=== PATIENT | male | born 1985 | race Caucasian/White ===

== ENCOUNTER → 2016-10-30 | Outpatient (CLI) | payer OTHER ==
--- NOTE | 2016-10-30 19:21 | MR ---
EXAMINATION TYPE: MR iac wo/w con DATE OF EXAM: 10/30/2016 COMPARISON: Prior performed at [facility]. No prior at this institution. HISTORY: Vertigo, tinnitis and hearing loss. Left-sided hearing loss. Prior head trauma. Right-sided numbness. TECHNIQUE: Multiplanar, multisequence images of the brain and brainstem is performed without and with IV contras t, utilizing 7.0 mL intravenous Gadavist FINDINGS: Diffusion weighted images demonstrate no evidence of a recent infarct or other diffusion ab normality. There is no extra-axial fluid collection or significant white matter signal abnormality. The ventricular system and cisternal spaces are normal in size and appearance. The brain volume is age appropriate. Midline structures demonstrate normal morphology. The craniocervical junction appears within normal limits. Post contrast images demonstrate no abnormal enhancement. The dural venous sinuses appear pa tent. Mild mucosal thickening is seen within the ethmoid sinuses. The remaining visualized sinuses ar e clear and the globes are intact. No mass is seen at the cerebellopontine angle. No abnormal enhancement is seen of the 7th or 8th cran ial nerves in the intracanalicular, genu, or labyrinth portions. No fluid is seen within the mastoid air cells. Semicircular canals appear unremarkable. IMPRESSION: 1. No evidence of enhancing mass to suggest vestibular schwannoma, mastoid fluid, middle air cavity f luid, or abnormal enhancement of the 7th or 8th cranial nerves to suggest neuritis. 2. Mild paranasal sinus disease.
== END | disposition home or self-care (01) ==
LOC: RADMRIMAIN 14:35
PROVIDERS: ATTEND Otolaryngology
DX: H91.90 Unspecified hearing loss, unspecified ear (principal)
CPT/HCPCS: 70553; A9581

== ENCOUNTER 2021-02-19 15:31 | Emergency (ER) | payer OTHER ==
[2021-02-19 16:16] VITALS: BP 136/77; PULSE 83; RESP 20; TEMP 98
[2021-02-19] MEDS ORDERED: ACETAMINOPHEN TAB 500 MG TAB PO STA (16:23)
--- NOTE | 2021-02-19 17:13 | CT ---
EXAMINATION TYPE: CT brain wo con DATE OF EXAM: 02/19/2021 COMPARISON: None HISTORY: Headache and blurred vison after head injury. CT DLP: 1099.4 mGycm Automated exposure control for dose reduction was used. Ventricles and sulci appear normal. There is no mass effect or midline shift. There is no sign of int racranial hemorrhage. Calvarium is intact. There is no evidence of cerebral edema. IMPRESSION: Negative unenhanced head CT scan.
--- NOTE | 2021-02-19 17:18 | ED ---
Head Injury HPI - General Chief complaint: Head Injury Stated complaint: Head Trauma,Blurred Vision Time Seen by Provider: 02/19/21 16:19 Source: patient, RN notes reviewed Mode of arrival: ambulatory Limitations: no limitations - History of Present Illness Initial comments: Presents to the emergency department complaining of headache. He notes that he had several logs fallen abdomen the back of her head. He denied losing consciousness or taking blood thinners. Patient did have some abrasions to the right lateral posterior aspect of his neck. Patient notes she tried walking and off but came to the emergency room to get evaluated. He notes he is a little bit dizzy and did have blurred vision shortly after the initial incident. Patient denied any other issues or complaints. He denied any chest pain shortness of breath nausea vomiting diarrhea constipation fever fatigue chills. - Related Data Home Medications Medication Instructions Recorded Confirmed Albuterol Sulfate [Proair Hfa] 1 puff INHALATION DIRECTED 04/26/15 12/24/15 Fluticasone/Salmeterol [Advair 1 puff INHALATION DAILY 04/26/15 12/24/15 100-50 Diskus] Previous Rx's Medication Instructions Recorded Ibuprofen [Motrin] 800 mg PO Q6HR PRN #20 tab 12/24/15 Tamsulosin HCl [Flomax] 0.4 mg PO DAILY #7 cap 12/24/15 Allergies/Adverse reactions: Allergies Allergy/AdvReac Type Severity Reaction Status Date / Time No Known Allergies Allergy Verified 02/19/21 16:16 Review of Systems ROS Statement: Those systems with pertinent positive or pertinent negative responses have been documented in the HPI. ROS Other: All systems not noted in ROS Statement are negative. Past Medical History Past Medical History: Asthma History of Any Multi-Drug Resistant Organisms: None Reported Past Surgical History: No Surgical Hx Reported Past Psychological History: No Psychological Hx Reported Smoking Status: Never smoker Past Alcohol Use History: Occasional Past Drug Use History: None Reported General Exam Limitations: no limitations General appearance: alert, in no apparent distress Head exam: Present: normocephalic, normal inspection. Absent: atraumatic (Several abrasions to the posterior right side of the head and neck.) Eye exam: Present: normal appearance, PERRL, EOMI. Absent: scleral icterus, conjunctival injection, periorbital swelling Pupils: Present: normal accommodation ENT exam: Present: normal exam, mucous membranes moist Neck exam: Present: normal inspection, tenderness (Right posterior lateral aspect with several abrasions), full ROM. Absent: lymphadenopathy Respiratory exam: Present: normal lung sounds bilaterally. Absent: respiratory distress, wheezes, rales, rhonchi, stridor Cardiovascular Exam: Present: regular rate, normal rhythm, normal heart sounds. Absent: systolic murmur, diastolic murmur, rubs, gallop, clicks Extremities exam: Present: normal inspection, full ROM, normal capillary refill. Absent: tenderness, pedal edema, joint swelling, calf tenderness Neurological exam: Present: alert, oriented X3 Psychiatric exam: Present: normal affect, normal mood Skin exam: Present: warm, dry, intact, normal color. Absent: rash Course Vital Signs 02/19/21 16:14 Temperature 98 F Pulse Rate 83 Respiratory 20 Rate Blood Pressure 136/77 O2 Sat by Pulse 98 Oximetry Medical Decision Making - Medical Decision Making 36-year-old male with head injury after walks fell on him. CT of the brain, 1000 mg of T[address]ol ordered. CT of the brain negative for any acute process. Patient most likely suffered a concussion. Patient informed of results in his room with discharge home with follow-up primary care. Case discussed with Dr. Perea. Disposition Clinical Impression: Concussion without loss of consciousness Disposition: HOME SELF-CARE Condition: Stable Instructions (If sedation given, give patient instructions): Concussion (ED) Additional Instructions: Please return to the Emergency Department if symptoms worsen or any other concerns. Follow-up with primary care 1-2 days. 2 Tylenol Motrin as needed for aches or pains. Avoid any strenuous activity or contact sports. Is patient prescribed a controlled substance at d/c from ED?: No Referrals: Ramin King III, MD [Primary Care Provider] - 1-2 days Time of Disposition: 17:17
== END 2021-02-19 17:33 | disposition home or self-care (01) ==
LOC: EC 15:31
DX: S06.0X0A Concussion without loss of consciousness, initial encounter (principal); R40.2412 Glasgow coma scale score 13-15, at arrival to emergency department; J45.909 Unspecified asthma, uncomplicated; Z79.51 Long term (current) use of inhaled steroids; W20.8XXA Other cause of strike by thrown, projected or falling object, initial encounter; Y92.009 Unspecified place in unspecified non-institutional (private) residence as the place of occurrence of the external cause
CPT/HCPCS: 70450; 99284

== ENCOUNTER → 2021-12-05 | Outpatient (CLI) | payer OTHER ==
--- NOTE | 2021-12-06 02:59 | MR ---
EXAMINATION TYPE: MR shoulder LT wo con DATE OF EXAM: 12/05/2021 COMPARISON: None HISTORY: Left shoulder pain x 2-3 years, no trauma. Multiplanar multi echo imaging of the left shoulder with no contrast. The subscapularis tendon is intact. There is small amount of fluid around the biceps tendon. Biceps t endon is intact. The glenoid declan appear intact. Glenohumeral joint space is fairly normal. The AC j oint is intact. No significant subacromial impingement. The supraspinatus tendon is intact. No retrac tion. Infraspinatus tendon is intact. No evidence of focal bone destruction. Scapula is intact. IMPRESSION: No evidence of rotator cuff tear. Slight increased joint fluid consistent with minimal synovitis. No fracture.
== END | disposition home or self-care (01) ==
LOC: RADMRIMAIN 16:23
PROVIDERS: ATTEND Orthopaedic Surgery
DX: M65.812 Other synovitis and tenosynovitis, left shoulder (principal); M75.42 Impingement syndrome of left shoulder; M62.81 Muscle weakness (generalized); Z68.28 Body mass index [BMI] 28.0-28.9, adult

== ENCOUNTER → 2022-06-02 | Outpatient (CLI) | payer OTHER ==
--- NOTE | 2022-06-02 15:07 | XR ---
EXAMINATION TYPE: XR cervical spine limited DATE OF EXAM: 06/02/2022 COMPARISON: 04/11/2022 HISTORY: Pain, difficulty turning head TECHNIQUE: 3 views cervical spine FINDINGS: Prevertebral space is normal. Disc heights appear preserved prevertebral body heights are p reserved. Alignment is normal. Posterior spinal lamellar line is intact. Tip of the odontoid is limit ed due to overlying occiput. Follow-up MRI can be performed as clinically indicated. IMPRESSION: 1. No acute osseous abnormality cervical spine.
== END | disposition home or self-care (01) ==
LOC: RADXRMAIN 14:48
PROVIDERS: ATTEND Nurse Practitioner Family
DX: M54.2 Cervicalgia (principal)
CPT/HCPCS: 72040

== ENCOUNTER → 2022-06-15 | Outpatient (CLI) | payer OTHER ==
--- NOTE | 2022-06-15 10:38 | FL ---
EXAMINATION TYPE: FL barium swallow DATE OF EXAM: 06/15/2022 CLINICAL HISTORY: Dysphasia. Patient states vomiting with food and liquids on and off for years. Salvador machuca feels like he gets caught in the lower neck TECHNIQUE: A double contrast esophagram is performed utilizing air and barium. A total of 29 second s of fluoroscopic time was utilized during procedure and 47 images obtained COMPARISON: None FINDINGS: The esophagus shows satisfactory motility and emptying into the stomach. No proximal divert iculum. No evidence of fixed hiatal hernia or stricture noted. No significant gastroesophageal reflux was seen during real time performance of this study. IMPRESSION: No significant abnormality is seen to account for patient's symptoms.
== END | disposition home or self-care (01) ==
LOC: RADUSWWP 08:46
PROVIDERS: ATTEND Family Medicine
DX: R13.10 Dysphagia, unspecified (principal)
CPT/HCPCS: 74220

== ENCOUNTER 2022-07-20 18:51 | Emergency (ER) | payer OTHER ==
[2022-07-20 19:10] VITALS: TEMP 98
[2022-07-20] MEDS ORDERED: TOPICAL SKIN ADHESIVE 1 EACH AMP TOPICAL ONE (19:23)
[2022-07-20] MEDS ORDERED: DIPH,PERTUS(ACELL)TETVAC-LF 0.5 ML VIAL IM ONE (19:23)
[2022-07-20 19:42] VITALS: BP 136/69; PULSE 59; RESP 16
--- NOTE | 2022-07-20 20:18 | CT ---
EXAMINATION TYPE: CT brain cspine wo con, CT facial bones wo con CT DLP: 1327 mGycm, Automated exposure control for dose reduction was used. DATE OF EXAM: 07/20/2022 8:08 PM COMPARISON: None. CLINICAL INDICATION:Male, 37 years old with history of head injury; pain after head injury. laceratio n to left eyebrow (accession [id number]), pain after head injury. Laceration to left eyebrow. (accessio n [id number]) TECHNIQUE: Brain: Multiple axial CT images of the brain were obtained without IV contrast. Cspine: Axial CT images from the skull base to the inferior aspect of T2 we obtained without intraven ous contrast. Coronal and sagittal reformatted images were also reviewed. Facial: CT axial images of the facial structures with sagittal coronal reformats. FINDINGS: Brain: Extra-axial spaces: No abnormal extra-axial fluid collections. Ventricular system: Within normal limits Cerebral parenchyma: No acute intraparenchymal hemorrhage or mass effect. The craven-white junction is well differentiated. Cerebellum: Unremarkable. Mass effect: No evidence of midline shift. Intracranial vasculature: unremarkable Soft tissues: Laceration reported over the left eyebrow is poorly visualized. No subcutaneous fluid c ollections. No radiopaque foreign bodies. Calvarium/osseous structures: No depressed skull fracture. No evidence of facial fracture. Paranasal sinuses and mastoid air cells: Clear. Visualized orbits: Orbital contents are intact. Cervical spine: Fracture: None. Osseous structures: Unremarkable Vertebral alignment: Within normal limits. Spinal canal/Neural Foramina: No evidence of significant spinal canal narrowing. No evidence for sign ificant neural foraminal stenosis. Neck soft tissues: Prevertebral soft tissues are within normal limits. Other: The airway is patent. The lung apices are clear. IMPRESSION: 1. No acute intracranial process. 2. No evidence of cervical spine fracture. 3. Small laceration over the left superior orbital ridges in not well visualized. No radiopaque fore ign bodies. 4. No facial bone fractures.
--- NOTE | 2022-07-20 20:22 | ED ---
Head Injury HPI - General Chief complaint: Head Injury Stated complaint: facial laceration Time Seen by Provider: 07/20/22 19:15 Source: patient Mode of arrival: ambulatory Limitations: no limitations - History of Present Illness Initial comments: Patient is a 37-year-old male presenting with chief complaint of head injury. Patient was cutting down a tree when a branch hit him in the back of the head causing him to hit his face against a log. No loss of consciousness and no blood thinners. Patient does have a laceration near the left eyebrow. No nausea, vomiting, vision or hearing changes, numbness, tingling, weakness. Patient does admit to some dizziness. No chest pain, difficulty breathing, abdominal pain. - Related Data Home Medications Medication Instructions Recorded Confirmed Albuterol Sulfate [Proair Hfa] 1 puff INHALATION DIRECTED 04/26/15 12/24/15 Fluticasone Propion/Salmeterol 1 puff INHALATION DAILY 04/26/15 12/24/15 [Advair 100-50 Diskus] Previous Rx's Medication Instructions Recorded Ibuprofen [Motrin] 800 mg PO Q6HR PRN #20 tab 12/24/15 Tamsulosin HCl [Flomax] 0.4 mg PO DAILY #7 cap 12/24/15 Ketorolac [Toradol] 10 mg PO Q6HR #20 tab 03/22/22 Orphenadrine [Norflex] 100 mg PO Q12H #7 tab 03/22/22 Allergies/Adverse reactions: Allergies Allergy/AdvReac Type Severity Reaction Status Date / Time No Known Allergies Allergy Verified 07/20/22 19:10 Review of Systems ROS Statement: Those systems with pertinent positive or pertinent negative responses have been documented in the HPI. ROS Other: All systems not noted in ROS Statement are negative. Past Medical History Past Medical History: Asthma History of Any Multi-Drug Resistant Organisms: None Reported Past Surgical History: No Surgical Hx Reported Past Psychological History: No Psychological Hx Reported Smoking Status: Never smoker Past Alcohol Use History: Occasional Past Drug Use History: None Reported General Exam Limitations: no limitations General appearance: alert, in no apparent distress Head exam: Present: atraumatic, normocephalic, normal inspection Eye exam: Present: normal appearance, PERRL, EOMI. Absent: periorbital swelling, periorbital tenderness Pupils: Present: normal accommodation Neck exam: Present: normal inspection, full ROM. Absent: tenderness Respiratory exam: Present: normal lung sounds bilaterally. Absent: respiratory distress, wheezes, rales, rhonchi, stridor Cardiovascular Exam: Present: regular rate, normal rhythm, normal heart sounds. Absent: systolic murmur, diastolic murmur, rubs, gallop, clicks Neurological exam: Present: alert, oriented X3, CN II-XII intact Psychiatric exam: Present: normal affect, normal mood Expanded Type of lesion: Present: laceration (2 cm laceration left eyebrow) Course Vital Signs 07/20/22 07/20/22 19:06 19:40 Temperature 98.0 F Pulse Rate 62 59 L Respiratory 20 16 Rate Blood Pressure 137/84 136/69 O2 Sat by Pulse 98 99 Oximetry Procedures - Laceration Laceration #1 Consent Obtained: verbal consent Indication: laceration Site: face Description: linear Type of Sutures: other (exofin) Medical Decision Making - Medical Decision Making Was pt. sent in by a medical professional or institution (, PA, RAT BREEDER, urgent care, hospital, or correction...) When possible be specific @ -No Did you speak to anyone other than the patient for history (EMS, parent, family, police, friend...)? What history was obtained from this source @ -No Did you review nursing and triage notes (agree or disagree)? Why? @ -I reviewed and agree with nursing and triage notes Were old charts reviewed (outside hosp., previous admission, EMS record, old EKG, old radiological studies, urgent care reports/EKG's, correction records)? Report findings @ -No old charts were reviewed Differential Diagnosis (chest pain, altered mental status, abdominal pain women, abdominal pain men, vaginal bleeding, weakness, fever, dyspnea, syncope, headache, dizziness, GI bleed, back pain, seizure, CVA, palpatations, mental health, musculoskeletal)? @ -Differential includes concussion, closed head injury, intracranial hemorrhage, this is not an all inclusive list EKG interpreted by me (3pts min.). @ -As above X-rays interpreted by me (1pt min.). @ -None done CT interpreted by me (1pt min.). @ -CT of the brain, cervical spine, and facial bones shows no acute process U/S interpreted by me (1pt. min.). @ -None done What testing was considered but not performed or refused? (CT, X-rays, U/S, labs)? Why? @ -None What meds were considered but not given or refused? Why? @ -None Did you discuss the management of the patient with other professionals (professionals i.e. , PA, RAT BREEDER, lab, RT, psych nurse, social media community manager, safety assistant, teacher, transportation security officer, case monitor)? Give summary @ -No Was smoking cessation discussed for >3mins.? @ -No Was critical care preformed (if so, how long)? @ -No Were there social determinants of health that impacted care today? How? (Homelessness, low income, unemployed, alcoholism, drug addiction, transportation, low edu. Level, literacy, decrease access to med. care, senior care, rehab)? @ -No Was there de-escalation of care discussed even if they declined (Discuss DNR or withdrawal of care, Hospice)? DNR status @ -No What co-morbidities impacted this encounter? (DM, HTN, Smoking, COPD, CAD, Cancer, CVA, ARF, Chemo, Hep., AIDS, mental health diagnosis, sleep apnea, morbid obesity)? @ -None Was patient admitted / discharged? Hospital course, mention meds given and route, prescriptions, significant lab abnormalities, going to OR and other p ertinent info. @ -37-year-old male presenting for evaluation post head injury. No loss of consciousness or blood thinners. There is a laceration to the left eyebrow. CT of the brain, cervical spine, and facial bones is negative for acute process. The laceration is repaired using exofin. Patient is educated on supportive management at home and alarm symptoms that should prompt immediate reevaluation. Follow-up with PCP. Report back to ER with any new or worsening symptoms. Discussed return parameters and answered all questions. Patient conveyed verbal understanding and agreed to the plan. I discussed this case in detail with my attending Dr. Leger Undiagnosed new problem with uncertain prognosis? @ -No Drug Therapy requiring intensive monitoring for toxicity (Heparin, Nitro, Insulin, Cardizem)? @ -No Were any procedures done? @ -Laceration repair Diagnosis/symptom? @ -Facial laceration Acute, or Chronic, or Acute on Chronic? @ -Acute Uncomplicated (without systemic symptoms) or Complicated (systemic symptoms)? @ -Uncomplicated Side effects of treatment? @ -No Exacerbation, Progression, or Severe Exacerbation? @ -No Poses a threat to life or bodily function? How? (Chest pain, [place], [place], pneumonia, PE, COPD, DKA, ARF, appy, cholecystitis, CVA, Diverticulitis, Homicidal, Suicidal, threat to staff... and all critical care pts) @ -Low likelihood Disposition Clinical Impression: Facial laceration, Closed head injury Disposition: HOME SELF-CARE Condition: Good Instructions (If sedation given, give patient instructions): Head Injury (ED), Facial Laceration (ED) Additional Instructions: Follow-up with PCP. Report back to ER with any new or worsening symptoms. Monitor for signs of infection, including but not limited to redness, swelling, pain, discharge, fever, chills. Keep the wound clean and dry and covered. Avoid fully submerging the wound. Clean with soap and water. Do not apply Neosporin or other ointment-based products as this will break down the skin adhesive. Is patient prescribed a controlled substance at d/c from ED?: No Referrals: Alessandra Tucker MD [Primary Care Provider] - 1-2 days Time of Disposition: 20:22
== END 2022-07-20 20:36 | disposition home or self-care (01) ==
LOC: EC 18:51
DX: S01.81XA Laceration without foreign body of other part of head, initial encounter (principal); S01.112A Laceration without foreign body of left eyelid and periocular area, initial encounter; J45.909 Unspecified asthma, uncomplicated; Z79.51 Long term (current) use of inhaled steroids; Z23 Encounter for immunization; W26.8XXA Contact with other sharp object(s), not elsewhere classified, initial encounter
CPT/HCPCS: 12011; 70450; 70486; 72125; 90471; 90715; 99283

== ENCOUNTER 2023-02-13 17:26 | Emergency (ER) | payer OTHER ==
--- NOTE | 2023-02-13 17:37 | ED ---
General Adult HPI - General Source: patient, RN notes reviewed Mode of arrival: ambulatory Limitations: no limitations <Yadira Davis - Last Filed: 02/13/23 17:36> <Danie Hardy - Last Filed: 02/13/23 21:14> - General Chief complaint: Upper Respiratory Infection Stated complaint: Chest Pain Time Seen by Provider: 02/13/23 17:36 - History of Present Illness Initial comments: 37-year-old male with no significant past medical history presents the emergency department with a chief complaint of cough, chest congestion. (Yadira Davis) 37-year-old male presents to the ED with complaints of body aches, headache, nausea, cough, and congestion. Denies fever. Rates he is otherwise eating and drinking normally. No chest pain or shortness of breath. No other complaints. (Danie Hardy) - Related Data Home Medications Medication Instructions Recorded Confirmed Albuterol Sulfate [Proair Hfa] 1 puff INHALATION DIRECTED 04/26/15 12/24/15 Fluticasone Propion/Salmeterol 1 puff INHALATION DAILY 04/26/15 12/24/15 [Advair 100-50 Diskus] Previous Rx's Medication Instructions Recorded Ibuprofen [Motrin] 800 mg PO Q6HR PRN #20 tab 12/24/15 Tamsulosin HCl [Flomax] 0.4 mg PO DAILY #7 cap 12/24/15 Ketorolac [Toradol] 10 mg PO Q6HR #20 tab 03/22/22 Orphenadrine [Norflex] 100 mg PO Q12H #7 tab 03/22/22 Allergies Allergy/AdvReac Type Severity Reaction Status Date / Time No Known Allergies Allergy Verified 02/13/23 17:35 Review of Systems ROS Other: All systems not noted in ROS Statement are negative. <Yadira Davis - Last Filed: 02/13/23 17:36> ROS Other: All systems not noted in ROS Statement are negative. <Danie Hardy - Last Filed: 02/13/23 21:14> ROS Statement: Those systems with pertinent positive or pertinent negative responses have been documented in the HPI. Past Medical History Past Medical History: Asthma History of Any Multi-Drug Resistant Organisms: None Reported Past Surgical History: No Surgical Hx Reported Past Psychological History: No Psychological Hx Reported Smoking Status: Never smoker Past Alcohol Use History: Occasional Past Drug Use History: None Reported <Yadira Davis - Last Filed: 02/13/23 17:36> General Exam Limitations: no limitations <Yadira Davis - Last Filed: 02/13/23 17:36> General appearance: alert, in no apparent distress Eye exam: Present: normal appearance Neck exam: Present: normal inspection Respiratory exam: Present: normal lung sounds bilaterally Cardiovascular Exam: Present: regular rate, normal rhythm GI/Abdominal exam: Present: soft Neurological exam: Present: alert, oriented X3 Skin exam: Present: warm, dry <Danie Hardy - Last Filed: 02/13/23 21:14> - General Exam Comments Initial Comments: Visual Physical Exam Vital signs reviewed General: Well-appearing, nontoxic, no acute distress. Head: Normocephalic, atraumatic Eyes: PERRLA, EOMI ENT: Airway patent Chest: Nonlabored breathing Skin: No visual rash, normal skin tone Neuro: Alert and oriented 3 Musculoskeletal: No gross abnormalities (Yadira Davis) Course Vital Signs 02/13/23 17:32 Temperature 98.6 F Pulse Rate 98 Respiratory 18 Rate Blood Pressure 132/86 O2 Sat by Pulse 98 Oximetry Medical Decision Making <Yadira Davis - Last Filed: 02/13/23 17:36> <Danie Hardy - Last Filed: 02/13/23 21:14> - Medical Decision Making I performed the quick note portion of this exam, verbal signature Yadira Davis PA-C (Yadira Davis) Was pt. sent in by a medical professional or institution (LUCILA Desai, [facility], urgent care, hospital, or [facility]...) When possible be specific @ -No Did you speak to anyone other than the patient for history (EMS, parent, family, police, friend...)? What history was obtained from this source @ -No Did you review nursing and triage notes (agree or disagree)? Why? @ -I reviewed and agree with nursing and triage notes Were old charts reviewed (outside hosp., previous admission, EMS record, old EKG, old radiological studies, urgent care reports/EKG's, [facility] records)? Report findings @ -No old charts were reviewed Differential Diagnosis (chest pain, altered mental status, abdominal pain women, abdominal pain men, vaginal bleeding, weakness, fever, dyspnea, syncope, headache, dizziness, GI bleed, back pain, seizure, CVA, palpatations, mental health, musculoskeletal)? @ -Differential Fever: Pneumonia, viral URI, endocarditis, myocarditis, pericarditis, otitis, sinusitis, peritonsillar Abscess, retropharyngeal Abscess, epiglottitis, peritonitis, appendicitis, Liv cystitis, diverticulitis, hepatitis, colitis, UTI, PID, TOA, pyelonephritis, prostatitis, epididymitis, meningitis, encephalitis, pulmonary embolism, CVA, thyroid storm, pancreatitis, adrenal crisis, cavernous sinus thrombosis, this is not meant to be an all-inclusive list. EKG interpreted by me (3pts min.). @ -None X-rays interpreted by me (1pt min.). @ -Chest X-rays interpreted by me showed no evidence of pneumonia or other acute finding. CT interpreted by me (1pt min.). @ -None done U/S interpreted by me (1pt. min.). @ -None done What testing was considered but not performed or refused? (CT, X-rays, U/S, labs)? Why? @ -None What meds were considered but not given or refused? Why? @ -None Did you discuss the management of the patient with other professionals (professionals i.e. , PA, D[facility], lab, RT, psych nurse, social secretary, boat canvas maker installer, teacher, certification officer, community case manager)? Give summary @ -No Was smoking cessation discussed for >3mins.? @ -No Was critical care preformed (if so, how long)? @ -No Were there social determinants of health that impacted care today? How? (Homelessness, low income, unemployed, alcoholism, drug addiction, transportation, low edu. Level, literacy, decrease access to med. care, [facility], rehab)? @ -No Was there de-escalation of care discussed even if they declined (Discuss DNR or withdrawal of care, Hospice)? DNR status @ -No What co-morbidities impacted this encounter? (DM, HTN, Smoking, COPD, CAD, Cancer, CVA, ARF, Chemo, Hep., AIDS, mental health diagnosis, sleep apnea, morbid obesity)? @ -None Was patient admitted / discharged? Hospital course, mention meds given and route, prescriptions, significant lab abnormalities, going to OR and other pertinent info. @ -Discharge 37-year-old male presents to the ED with 2 days of URI symptoms. Chest x-ray shows no evidence of pneumonia or other acute process. Serology testing shows patient positive for influenza B. Discharged home in stable condition. Advised supportive care. Discussed return precautions with patient who verbalizes agreement. Undiagnosed new problem with uncertain prognosis? @ -No Drug Therapy requiring intensive monitoring for toxicity (Heparin, Nitro, Insulin, Cardizem)? @ -No Were any procedures done? @ -No Diagnosis/symptom? @ -Influenza A Acute, or Chronic, or Acute on Chronic? @ -Acute Uncomplicated (without systemic symptoms) or Complicated (systemic symptoms)? @ -Uncomplicated Side effects of treatment? @ -No Exacerbation, Progression, or Severe Exacerbation? @ -No Poses a threat to life or bodily function? How? (Chest pain, [place], [place], pneumonia, PE, COPD, DKA, ARF, appy, cholecystitis, CVA, Diverticulitis, Homicidal, Suicidal, threat to staff... and all critical care pts) @ -No (Danie Hardy) - Lab Data Lab Results 02/13/23 Range/Units 18:12 Influenza Type A (PCR) Not Detected (Not Detectd) Influenza Type B (PCR) Detected A (Not Detectd) RSV (PCR) Not Detected (Not Detectd) SARS-CoV-2 (PCR) Not Detected (Not Detectd) Disposition <Yadira Davis - Last Filed: 02/13/23 17:36> Is patient prescribed a controlled substance at d/c from ED?: No Time of Disposition: 21:14 <Danie Hardy - Last Filed: 02/13/23 21:14> Clinical Impression: Influenza Disposition: HOME SELF-CARE Condition: Good Additional Instructions: Please return to the Emergency Department if symptoms worsen or any other concerns. Please follow up with your PCP. Referrals: Alessandra Tucker MD [Primary Care Provider] - 1-2 days
--- NOTE | 2023-02-13 20:09 | XR ---
EXAMINATION TYPE: XR chest 2V DATE OF EXAM: 02/13/2023 5:46 PM CLINICAL INDICATION:Male, 37 years old with history of chest congestion; [facility] COMPARISON: None TECHNIQUE: XR chest 2V Frontal and lateral views of the chest. FINDINGS: Lungs/Pleura: There is no evidence of pleural effusion, focal consolidation, or pneumothorax. Pulmonary vascularity: Unremarkable. Heart/mediastinum: Cardiomediastinal silhouette is unremarkable. Musculoskeletal: No acute osseous pathology. IMPRESSION: No acute cardiopulmonary disease/process.
[2023-02-13 21:44] VITALS: BP 137/91; PULSE 95; RESP 16; TEMP 99
== END 2023-02-13 21:25 | disposition home or self-care (01) ==
LOC: EC 17:26
DX: J11.1 Influenza due to unidentified influenza virus with other respiratory manifestations (principal); J45.909 Unspecified asthma, uncomplicated; Z79.51 Long term (current) use of inhaled steroids; Z20.822 Contact with and (suspected) exposure to COVID-19
CPT/HCPCS: 71046; 87636; 99284

== ENCOUNTER → 2023-07-13 | Outpatient (CLI) | payer OTHER ==
[2023-07-13 15:46] LABS: Basophils # (A) 0.03 X 10*3/uL (0.00-0.10); Basophils % (A) 0.5 %; Eosinophils # (A) 0.13 X 10*3/uL (0.04-0.35); Eosinophils % (A) 2.1 %; HCT 45.8 % (39.6-50.0); HGB 15.4 g/dL (13.0-17.0); Lymphocytes # (A) 1.68 X 10*3/uL (0.90-5.00); Lymphocytes % (A) 27.5 %; MCH 30.1 pg (27.0-32.0); MCHC 33.6 g/dL (32.0-37.0); MCV 89.6 FL (80.0-97.0); Mean Platelet Volume 10.4 FL (9.5-12.2); Monocytes # (A) 0.45 X 10*3/uL (0.20-1.00); Monocytes % (A) 7.4 %; NRBC Per 100 WBC 0 X 10*3/uL (0.00-0.01); Neutrophils % (A) 62.3 %; Platelet Count 233 X 10*3/uL (140-440); RBC 5.11 X 10*6/uL (4.40-5.60); RDW 12.4 % (11.5-14.5)
[2023-07-13 16:10] LABS: ALT 23 U/L (10-49); AST 15 U/L (14-35); Albumin 4.8 g/dL (3.8-4.9); Albumin/Globulin Ratio 2.09 Ratio (1.60-3.17); Alkaline Phosphatase 92 U/L (41-126); BUN/Creat Ratio 20.56 Ratio (12.00-20.00); Blood Urea Nitrogen 18.5 mg/dL (9.0-27.0); Calcium 9.6 mg/dL (8.7-10.3); Chloride 107 mmol/L (96-109); Globulin 2.3 g/dL (1.6-3.3); Glucose 90 mg/dL (70-110); Potassium 4.4 mmol/L (3.5-5.5); Sodium 146 mmol/L (135-145); Total Bilirubin 0.5 mg/dL (0.3-1.2); Total Protein 7.1 g/dL (6.2-8.2)
== END | disposition home or self-care (01) ==
LOC: LABWHC1 11:17
PROVIDERS: ATTEND Family Medicine
DX: Z13.21 Encounter for screening for nutritional disorder (principal); Z13.220 Encounter for screening for lipoid disorders; Z13.228 Encounter for screening for other metabolic disorders; Z13.29 Encounter for screening for other suspected endocrine disorder; R53.82 Chronic fatigue, unspecified
CPT/HCPCS: 36415; 80053; 80061; 82306; 82607; 84402; 84403; 84443; 85025

== ENCOUNTER 2024-02-12 17:55 | Emergency (ER) | payer OTHER ==
[2024-02-12 18:08] VITALS: TEMP 97.7
--- NOTE | 2024-02-12 18:17 | ED ---
General Adult HPI - General Source: patient, RN notes reviewed Mode of arrival: ambulatory Limitations: no limitations <Kasia Salinas - Last Filed: 02/12/24 18:14> - General Source: patient, RN notes reviewed <Munira Centeno - Last Filed: 02/12/24 23:16> - General Chief complaint: Shortness of Breath Stated complaint: EILEEN Time Seen by Provider: 02/12/24 18:10 - History of Present Illness Initial comments: Quick note: 38-year-old male presents to the emergency department for evaluation of shortness of breath. He reports that this has been going on for the past 2 days worse with exertion. He notes that he has been experiencing some tightness across his chest with eating. He states that this has been ongoing for multiple weeks. He attributes this to heartburn. (Kasia Salinas) 38-year-old male with history of asthma presenting to the ER for evaluation of shortness of breath x 2 days. States shortness of breath is worse with exertion. Also admits chest pain worse deep inspiration that radiates to the back. He has also been experiencing some tightness across the chest with eating the past 2 weeks. States he tried using his albuterol inhaler with no relief of symptoms. States he has had several flights in the past 90 days for work. Denies smoking, recent surgeries, or history of blood clots. No cardiac hi story. (Munira Centeno) - Related Data Home Medications Medication Instructions Recorded Confirmed Albuterol Sulfate [Proair Hfa] 1 puff INHALATION DIRECTED 04/26/15 12/24/15 Fluticasone Propion/Salmeterol 1 puff INHALATION DAILY 04/26/15 12/24/15 [Advair 100-50 Diskus] Previous Rx's Medication Instructions Recorded Ibuprofen [Motrin] 800 mg PO Q6HR PRN #20 tab 12/24/15 Tamsulosin HCl [Flomax] 0.4 mg PO DAILY #7 cap 12/24/15 Ketorolac [Toradol] 10 mg PO Q6HR #20 tab 03/22/22 Orphenadrine [Norflex] 100 mg PO Q12H #7 tab 03/22/22 predniSONE [Deltasone] 40 mg PO DAILY 5 Days #10 tab 02/12/24 Allergies Allergy/AdvReac Type Severity Reaction Status Date / Time No Known Allergies Allergy Verified 02/12/24 18:05 Review of Systems ROS Other: All systems not noted in ROS Statement are negative. <Kasia Salinas - Last Filed: 02/12/24 18:14> ROS Other: All systems not noted in ROS Statement are negative. <Munira Centeno - Last Filed: 02/12/24 23:16> ROS Statement: Those systems with pertinent positive or pertinent negative responses have been documented in the HPI. Past Medical History Past Medical History: Asthma History of Any Multi-Drug Resistant Organisms: None Reported Past Surgical History: No Surgical Hx Reported Past Psychological History: No Psychological Hx Reported Smoking Status: Never smoker Past Alcohol Use History: Occasional Past Drug Use History: None Reported <Kasia Salinas - Last Filed: 02/12/24 18:14> General Exam Limitations: no limitations <Kasia Salinas - Last Filed: 02/12/24 18:14> General appearance: alert, in no apparent distress Head exam: Present: atraumatic, normocephalic, normal inspection Respiratory exam: Present: normal lung sounds bilaterally. Absent: respiratory distress, wheezes, rales, rhonchi, stridor, chest wall tenderness Cardiovascular Exam: Present: regular rate, normal rhythm, normal heart sounds. Absent: systolic murmur, diastolic murmur, rubs, gallop, clicks Neurological exam: Present: alert, oriented X3 Psychiatric exam: Present: normal affect, normal mood Skin exam: Present: warm, dry, intact, normal color. Absent: rash <Munira Centeno - Last Filed: 02/12/24 23:16> - General Exam Comments Initial Comments: Visual Physical Exam Vital signs reviewed General: Well-appearing, nontoxic, no acute distress. Head: Normocephalic, atraumatic Eyes: PERRLA, EOMI ENT: Airway patent Chest: Nonlabored breathing Skin: No visual rash, normal skin tone Neuro: Alert and oriented 3 Musculoskeletal: No gross abnormalities (Kasia Salinas) Course Vital Signs 02/12/24 02/12/24 02/12/24 18:05 20:28 20:47 Temperature 97.7 F Pulse Rate 109 H 108 H 112 H Respiratory 20 Rate Blood Pressure 130/78 O2 Sat by Pulse 96 Oximetry 02/12/24 21:04 Temperature Pulse Rate 106 H Respiratory 18 Rate Blood Pressure 136/86 O2 Sat by Pulse 97 Oximetry Medical Decision Making <Kaisa Salinas - Last Filed: 02/12/24 18:14> - Lab Data Result diagrams: 02/12/24 19:45 02/12/24 19:45 - EKG Data -: EKG Interpreted by Me <Munira Centeno - Last Filed: 02/12/24 23:16> - Medical Decision Making Quick note preformed and electronically signed by LUCILA Humphrey-Janak (Kasia Salinas) Was pt. sent in by a medical professional or institution (LUCILA Desai, OPERATION MANAGER, urgent care, hospital, or skilled nursing...) When possible be specific @ -No Did you speak to anyone other than the patient for history (EMS, parent, family, police, friend...)? What history was obtained from this source @ -No Did you review nursing and triage notes (agree or disagree)? Why? @ -I reviewed and agree with nursing and triage notes Were old charts reviewed (outside hosp., previous admission, EMS record, old EKG, old radiological studies, urgent care reports/EKG's, skilled nursing records)? Report findings @ -No old charts were reviewed Differential Diagnosis (chest pain, altered mental status, abdominal pain women, abdominal pain men, vaginal bleeding, weakness, fever, dyspnea, syncope, headache, dizziness, GI bleed, back pain, seizure, CVA, palpatations, mental health, musculoskeletal)? @ -Differential Dyspnea: Coronary syndrome, arrhythmia, tamponade, asthma, COPD, pulmonary embolism, pn eumonia, pneumothorax, pulmonary effusion, anaphylaxis, diabetic ketoacidosis, flailed chest, pulmonary contusion, diaphragmatic rupture, anemia, neuromuscular, this is not meant to be an all-inclusive list. EKG interpreted by me (3pts min.). @ -As above X-rays interpreted by me (1pt min.). @ -Chest x-ray reveals mild interstitial prominence may reflect bronchitis or asthma, no focal infiltrate CT interpreted by me (1pt min.). @ -None done U/S interpreted by me (1pt. min.). @ -None done What testing was considered but not performed or refused? (CT, X-rays, U/S, labs)? Why? @ -None What meds were considered but not given or refused? Why? @ -None Did you discuss the management of the patient with other professionals (professionals i.e. DrAnaid, PA, OPERATION MANAGER, lab, RT, psych nurse, social professionals, scenic designer, teacher, corporate development officer, shoe parts caser)? Give summary @ -No Was smoking cessation discussed for >3mins.? @ -No Was critical care preformed (if so, how long)? @ -No Were there social determinants of health that impacted care today? How? (Homelessness, low income, unemployed, alcoholism, drug addiction, transportation, low edu. Level, literacy, decrease access to med. care, fdc, rehab)? @ -No Was there de-escalation of care discussed even if they declined (Discuss DNR or withdrawal of care, Hospice)? DNR status @ -No What co-morbidities impacted this encounter? (DM, HTN, Smoking, COPD, CAD, Cancer, CVA, ARF, Chemo, Hep., AIDS, mental health diagnosis, sleep apnea, morbid obesity)? @ -None Was patient admitted / discharged? Hospital course, mention meds given and route, prescriptions, significant lab abnormalities, going to OR and other pertinent info. @ -Discharge. This is a 38-year-old male with history of asthma presenting for shortness of breath x 2 days with associated chest pain worse with inspiration. No known cardiac risk factors. Patient is mildly tachycardic, otherwise vital signs within acceptable limits. Chest x-ray reveals mild interstitial prominence. Lab work including CBC, CMP, coags, D-dimer, troponin remarkable for mild leukocytosis of 11, ALT 73. Patient was given DuoNeb treatment and reports improvement of symptoms. Symptoms likely due to asthma exacerbation at this time. Patient discharged with a short course of steroids. Appropriate return precautions and follow-up care discussed. Case was discussed with my ED attending Dr. Damico. Undiagnosed new problem with uncertain prognosis? @ -No Drug Therapy requiring intensive monitoring for toxicity (Heparin, Nitro, Insulin, Cardizem)? @ -No Were any procedures done? @ -No Diagnosis/symptom? @ -Asthma exacerbation Acute, or Chronic, or Acute on Chronic? @ -Acute Uncomplicated (without systemic symptoms) or Complicated (systemic symptoms)? @ -Uncomplicated Side effects of treatment? @ -No Exacerbation, Progression, or Severe Exacerbation? @ -Exacerbation Poses a threat to life or bodily function? How? (Chest pain, [place], [place], pneumonia, PE, COPD, DKA, ARF, appy, cholecystitis, CVA, Diverticulitis, Homicidal, Suicidal, threat to staff... and all critical care pts) @ -Not at this time (Munira Centeno) - Lab Data Lab Results 02/12/24 02/12/24 02/12/24 Range/Units 19:45 19:45 19:45 WBC 11.0 H (3.8-10.6) k/uL RBC 4.88 (4.30-5.90) m/uL Hgb 15.5 (13.0-17.5) gm/dL Hct 44.6 (39.0-53.0) % MCV 91.4 (80.0-100.0) fL MCH 31.7 (25.0-35.0) pg MCHC 34.7 (31.0-37.0) g/dL RDW 12.4 (11.5-15.5) % Plt Count 236 (150-450) k/uL MPV 7.2 Neutrophils % 68 % Lymphocytes % 20 % Monocytes % 8 % Eosinophils % 3 % Basophils % 0 % Neutrophils # 7.5 (1.3-7.7) k/uL Lymphocytes # 2.1 (1.0-4.8) k/uL Monocytes # 0.8 (0-1.0) k/uL Eosinophils # 0.3 (0-0.7) k/uL Basophils # 0.0 (0-0.2) k/uL PT 11.2 (10.0-12.5) sec INR 1.0 (<1.2) APTT 22.6 (22.0-30.0) sec D-Dimer 0.22 (<0.60) mg/L FEU Sodium 138 (137-145) mmol/L Potassium 4.2 (3.5-5.1) mmol/L Chloride 102 (98-107) mmol/L Carbon Dioxide 24 (22-30) mmol/L Anion Gap 12 mmol/L BUN 19 (9-20) mg/dL Creatinine 0.76 (0.66-1.25) mg/dL Est GFR (CKD-EPI)AfAm >90 (>60 ml/min/1.73 sqM) Est GFR (CKD-EPI)NonAf >90 (>60 ml/min/1.73 sqM) Glucose 107 H (74-99) mg/dL Calcium 9.2 (8.4-10.2) mg/dL Total Bilirubin 0.7 (0.2-1.3) mg/dL AST 41 (17-59) U/L ALT 73 H (4-49) U/L Alkaline Phosphatase 61 (38-126) U/L Troponin I (0.000-0.034) ng/mL Total Protein 7.2 (6.3-8.2) g/dL Albumin 4.7 (3.5-5.0) g/dL 02/12/24 Range/Units 19:45 WBC (3.8-10.6) k/uL RBC (4.30-5.90) m/uL Hgb (13.0-17.5) gm/dL Hct (39.0-53.0) % MCV (80.0-100.0) fL MCH (25.0-35.0) pg MCHC (31.0-37.0) g/dL RDW (11.5-15.5) % Plt Count (150-450) k/uL MPV Neutrophils % % Lymphocytes % % Monocytes % % Eosinophils % % Basophils % % Neutrophils # (1.3-7.7) k/uL Lymphocytes # (1.0-4.8) k/uL Monocytes # (0-1.0) k/uL Eosinophils # (0-0.7) k/uL Basophils # (0-0.2) k/uL PT (10.0-12.5) sec INR (<1.2) APTT (22.0-30.0) sec D-Dimer (<0.60) mg/L FEU Sodium (137-145) mmol/L Potassium (3.5-5.1) mmol/L Chloride (98-107) mmol/L Carbon Dioxide (22-30) mmol/L Anion Gap mmol/L BUN (9-20) mg/dL Creatinine (0.66-1.25) mg/dL Est GFR (CKD-EPI)AfAm (>60 ml/min/1.73 sqM) Est GFR (CKD-EPI)NonAf (>60 ml/min/1.73 sqM) Glucose (74-99) mg/dL Calcium (8.4-10.2) mg/dL Total Bilirubin (0.2-1.3) mg/dL AST (17-59) U/L ALT (4-49) U/L Alkaline Phosphatase (38-126) U/L Troponin I <0.012 (0.000-0.034) ng/mL Total Protein (6.3-8.2) g/dL Albumin (3.5-5.0) g/dL - EKG Data EKG Comments: EKG reveals normal sinus rhythm with T wave inversions in leads III and V1. Ventricular rate 87 bpm, NM interval 143, QRS duration 89, QT/QTc 348/392 (Munira Centeno) Disposition <Kasia Salinas - Last Filed: 02/12/24 18:14> Is patient prescribed a controlled substance at d/c from ED?: No Time of Disposition: 21:28 <Munira Centeno - Last Filed: 02/12/24 23:16> Clinical Impression: Asthma exacerbation Disposition: HOME SELF-CARE Condition: Stable Instructions (If sedation given, give patient instructions): Asthma (ED) Additional Instructions: Take steroids as directed. Follow-up with PCP as discussed. Please return to the Emergency Department if symptoms worsen or any other concerns. Prescriptions: predniSONE [Deltasone] 40 mg PO DAILY 5 Days #10 tab Referrals: Rahel Francois NPC [Nurse Practitioner] - 1-2 days
--- NOTE | 2024-02-12 19:38 | XR ---
EXAMINATION TYPE: XR chest 2V DATE OF EXAM: 02/12/2024 7:30 PM COMPARISON: 02/13/2023 CLINICAL INDICATION: Male, 38 years old with shortness of breath, history of difficulty breathing, , TECHNIQUE: PA and lateral views FINDINGS: The cardiomediastinal silhouette, aorta, and pulmonary vasculature are within normal limits. There is a mild interstitial prominence but no consolidation or pleural effusion. IMPRESSION: Mild interstitial prominence may reflect bronchitis or asthma. No focal infiltrate seen. [facility], , 02/12/2024 7:36 PM
[2024-02-12 19:54] LABS: Basophils % (A) 0 %; Eosinophils # (A) 0.3 k/uL (0-0.7); Eosinophils % (A) 3 %; HCT 44.6 % (39.0-53.0); HGB 15.5 gm/dL (13.0-17.5); Lymphocytes # (A) 2.1 k/uL (1.0-4.8); Lymphocytes % (A) 20 %; MCH 31.7 pg (25.0-35.0); MCHC 34.7 g/dL (31.0-37.0); MCV 91.4 fL (80.0-100.0); Mean Platelet Volume 7.2; Monocytes # (A) 0.8 k/uL (0-1.0); Monocytes % (A) 8 %; Neutrophils # (A) 7.5 k/uL (1.3-7.7); Neutrophils % (A) 68 %; Platelet Count 236 k/uL (150-450); RBC 4.88 m/uL (4.30-5.90); RDW 12.4 % (11.5-15.5)
[2024-02-12 20:04] LABS: ALT 73 U/L (4-49); AST 41 U/L (17-59); African American GFR (CKD) >90 (>60 ml/min/1.73 sqM); Albumin 4.7 g/dL (3.5-5.0); Alkaline Phosphatase 61 U/L (38-126); Anion Gap 12 mmol/L; Blood Urea Nitrogen 19 mg/dL (9-20); Calcium 9.2 mg/dL (8.4-10.2); Carbon Dioxide 24 mmol/L (22-30); Chloride 102 mmol/L (98-107); Glucose 107 mg/dL (74-99); Non-African American GFR(CKD) >90 (>60 ml/min/1.73 sqM); Potassium 4.2 mmol/L (3.5-5.1); Sodium 138 mmol/L (137-145); Total Bilirubin 0.7 mg/dL (0.2-1.3); Total Protein 7.2 g/dL (6.3-8.2)
[2024-02-12 20:08] LABS: Partial Thromboplastin Time 22.6 sec (22.0-30.0); Prothrombin Time 11.2 sec (10.0-12.5)
[2024-02-12] MEDS: IPRATROPIUM-ALBUTEROL 3 ML NEB INHALATION STA (20:26)
[2024-02-12 21:04] VITALS: BP 136/86; PULSE 106; RESP 18
== END 2024-02-12 21:34 | disposition home or self-care (01) ==
LOC: EC 17:55
DX: J45.901 Unspecified asthma with (acute) exacerbation (principal)
CPT/HCPCS: 36415; 71046; 80053; 84484; 85025; 85379; 85610; 85730; 93005; 94640; 99285